=== PATIENT | female | born 1965 | race Caucasian/White ===

== ENCOUNTER 2017-08-13 18:53 | Emergency (ER) | payer OTHER ==
[~2017-08-13] VITALS: Ht 157.5 cm; Wt 69.9 kg
[2017-08-13 18:58] VITALS: BP 141/80
--- NOTE | 2017-08-13 19:03 | NUR ---
PT AMBULATED TO ER BED 06
--- NOTE | 2017-08-13 19:10 | NUR ---
PATIENT PRESENTS TO ED WITH REDNESS, EDEMA, YELLO/RED DRAINAGE TO MEDIAL RIGHT FIRST TOE X4 DAYS. PT STATES THE REDNESS AND DRAINAGE STARTED 4 DAYS AGO AFTER GETTING HER TOE NAILS DONE A PEDICURE. SHE HAS BEEN TREATING THE WOUND AT HOME, CLEANSING WITH SOAP AND WATER AND APPLYING ATBX OINT WITHOUT RESOLVE. DENIES N/V/D; SKIN IS PINK/WARM/DRY; AAOX4 WITH EVEN AND STEADY GAIT; LUNGS CLEAR BL; HR EVEN AND REGULAR; PT DENIES ANY FEVER, CP, SOB, OR COUGH AT THIS TIME; PATIENT STATES PAIN OF 8/10 AT THIS TIME; VSS; PATIENT POSITIONED FOR COMFORT; HOB ELEVATED; BEDRAILS UP X2; BED DOWN. ER MD MADE AWARE OF PT STATUS. CONTINUE TO MONITOR.
--- NOTE | 2017-08-13 19:35 | NUR ---
Dr. Bradford evaluating patient at bedside.
[2017-08-13] MEDS ORDERED: LIDOCAINE 2% 1000 MG/50 ML VIAL INJ ONE ×2 (19:42→20:05)
[2017-08-13] MEDS ORDERED: SILVER NITRATE APPLICATOR 1 EA SWAB TP ONE ×2 (19:55→19:59)
[2017-08-13] MEDS ORDERED: CEPHALEXIN 500 MG CAP PO ONE (19:55)
--- NOTE | 2017-08-13 19:56 | NUR ---
DR IBRAHIM PERFORMED PARTIAL TONAIL REMOVAL TO RIGHT RIST TOE. PROCEDURE TOLERATED WELL. CONTINUE TO MONITOR.
[2017-08-13 20:05] VITALS: BP 131/82
== END 2017-08-13 20:05 | disposition home or self-care (01) ==
LOC: MED 18:53
DX: L60.0 Ingrowing nail (principal); L08.9 Local infection of the skin and subcutaneous tissue, unspecified
CPT/HCPCS: 11730; 99283; J2001